=== PATIENT | male | born 1995 | race Caucasian/White ===

== ENCOUNTER 2017-04-21 13:13 | Emergency (ER) | payer BC ==
[~2017-04-21] VITALS: Ht 182.9 cm; Wt 70.3 kg
[2017-04-21] MEDS ORDERED: CEFTRIAXONE 500 MG VIAL IM ONE (14:00)
[2017-04-21] MEDS ORDERED: AZITHROMYCIN 250 MG TABLET PO ONE (14:00)
[2017-04-21] MEDS ORDERED: CEFTRIAXONE 500 MG VIAL ONE (14:25)
[2017-04-21] MEDS ORDERED: AZITHROMYCIN 250 MG TABLET ONE (14:25)
[2017-04-21 14:38] LABS: BASOPHILS # (AUTO) 0.1 K/uL (0.0-8.0); BASOPHILS % (AUTO) 0.3 % (0.0-2.0); EOSINOPHILS # (AUTO) 0.2 K/uL (0.0-0.7); EOSINOPHILS % (AUTO) 0.9 % (0.0-7.0); HEMATOCRIT 41.7 % (40-50); HEMOGLOBIN 14.2 G/DL (14.0-18.0); LYMPHOCYTES # (AUTO) 1.7 K/UL (0.8-4.8); LYMPHOCYTES % (AUTO) 8.1 % (20.5-51.5); MEAN CORPUSCULAR HEMOGLOBIN 30.9 UUG (27.0-31.0); MEAN CORPUSCULAR HGB CONC 34 g/dL (32.0-37.0); MEAN CORPUSCULAR VOLUME 90.5 FL (82.0-92.0); MONOCYTES # (AUTO) 1.6 K/UL (0.1-1.30); MONOCYTES % (AUTO) 7.4 % (0.0-11.0); NEUTROPHILS # (AUTO) 17.8 K/UL (1.8-8.9); NEUTROPHILS % (AUTO) 83.3 % (38.5-71.5); PLATELET COUNT (AUTO) 212 K/UL (150-450)
[2017-04-21 14:39] LABS: POTASSIUM 3.5 mmol/L (3.5-5.1)
[2017-04-21 14:43] LABS: WHITE BLOOD COUNT (AUTO) 21.4 K/UL (4.0-11.2)
[2017-04-21 14:45] LABS: BILIRUBIN,DIRECT 0.1 mg/dL (0.0-0.2); BILIRUBIN,TOTAL 0.4 mg/dL (0.2-1.0); TOTAL PROTEIN, SERUM 8.2 g/dL (6.4-8.2)
--- NOTE | 2017-04-21 14:55 | NUR ---
Pt stated " I gotta go ", pt denied any pain or discomfort, stated " I feel fine ". IV removed. Catheter intact and site benign. Pressure and 4x4 gauze applied to site. No bleeding noted. Pt ambulated out of ER with steady gait. ER physician notified.
[2017-04-21 15:00] VITALS: BP 143/94
[2017-04-21 15:29] LABS: BAND % (MANUAL) 6 % (0-10); EOSINOPHILS % (MANUAL) 1 % (0-8); LYMPHOCYTES % (MANUAL) 9 % (20-40); MONOCYTES % (MANUAL) 6 % (2-10); NEUTROPHILS % (MANUAL) 78 % (42-75)
== END 2017-04-21 15:01 | disposition left against medical advice (07) ==
LOC: ER 13:14
DX: T40.1X1A Poisoning by heroin, accidental (unintentional), initial encounter (principal); Y92.89 Other specified places as the place of occurrence of the external cause; R00.0 Tachycardia, unspecified
CPT/HCPCS: 36415; 71010; 80048; 80076; 84484; 85025; 93005; 96372; 99285; A4663; J0696; Q0144; 70030-TC